=== PATIENT | female | born 1965 | race Caucasian/White ===

== ENCOUNTER 2018-01-31 08:43 | Day surgery (SDC) | payer MEDICARE ==
[2018-01-31] MEDS ORDERED: PROPOFOL 10 MG/ML VIAL IV ONE (08:44)
[2018-01-31] MEDS ORDERED: LIDOCAINE 2% MDV (20MG/ML) 20ML VIAL IV ONE (08:44)
--- NOTE | 2018-02-01 10:20 | Operative Note ---
DATE OF SURGERY: 01/31/18 OPERATION: COLONOSCOPY with cold forceps polypectomy. PREOPERATIVE DIAGNOSIS: Colon cancer screen, average risk. POSTOPERATIVE DIAGNOSES: 1. Diminutive questionable transverse colon polyp. 2. Mild sigmoid diverticulosis. PREPARATION QUALITY: Excellent. ESTIMATED BLOOD LOSS: Minimum. SPECIMENS: Transverse colon polyp. COMPLICATIONS: None apparent. PROCEDURE: After informed consent was obtained from the patient, she was placed in the left lateral decubitus position in the endoscopy suite, sedated and monitored by the department of anesthesia. Digital rectal exam was unremarkable. A well-lubricated [id number] colonoscope was inserted into the rectum and advanced to the cecum. Preparation quality was excellent. The cecum, cecal bulb, ileocecal valve, appendiceal orifice, and ascending colon were unremarkable. The distal transverse colon revealed a diminutive polyp. This was unclear if this was a true polyp; however, given the appearance, biopsy forceps were utilized to remove the tissue without incident. The remainder of the transverse colon, descending colon, sigmoid colon, and rectum were unremarkable other than some mild diverticular changes in the sigmoid colon. The rectum was unremarkable in forward and J-turn views. The endoscope was straightened, the rectal ampulla deflated, and the endoscope was removed. RECOMMENDATIONS: I would suggest the patient follow a high-fiber diet and resume her medications. She will require repeat colonoscopy in 5-10 years pending tissue histology. As always, thank you for allowing me to participate in the healthcare of your patients. CC: MD CHRIS Aguilar
== END 2018-01-31 10:20 | disposition home or self-care (01) ==
LOC: HOP 08:43
PROVIDERS: ATTEND Internal Medicine Gastroenterology
DX: Z12.11 Encounter for screening for malignant neoplasm of colon (principal); D12.3 Benign neoplasm of transverse colon; K57.30 Diverticulosis of large intestine without perforation or abscess without bleeding; C80.1 Malignant (primary) neoplasm, unspecified; R56.9 Unspecified convulsions